=== PATIENT | female | born 1950 | race Caucasian/White ===

== ENCOUNTER 2023-03-22 10:34 | Emergency (ER) | payer OTHER ==
[~2023-03-22] VITALS: Ht 154.9 cm; Wt 72.6 kg
[2023-03-22] MEDS ORDERED: ATORVASTATIN CA40 MG PO (10:51)
[2023-03-22] MEDS ORDERED: AVAPRO150 MG PO (10:51)
[2023-03-22] MEDS ORDERED: HYDROCHLOROTH12.5 MG PO (10:52)
[2023-03-22] MEDS ORDERED: BACTRIM 400-801 EACH PO (10:52)
[2023-03-22] MEDS ORDERED: OZEMPIC1 MG/0.71 SQ (10:53)
[2023-03-22 12:12] LABS: PH,URINE 7.5 (5.0-8.0); URINE APPEARANCE Cloudy; URINE BILIRRUBIN Negative (NEGATIVE); URINE BLOOD Moderate; URINE COLOR Yellow; URINE GLUCOSE Negative (NEGATIVE); URINE LEUKOCYTE Large; URINE NITRATE Negative; URINE PROTEIN Negative (NEGATIVE); URINE UROBILINOGEN 0.2 E.U./dl
[2023-03-22 12:14] LABS: URINE RBC 85.7 uL (0.0-20.8); URINE WBC 1885.4 uL (0.0-23.2)
[2023-03-22] MEDS ORDERED: CEPHALEXIN500 MG PO (13:10)
== END 2023-03-22 13:32 | disposition home or self-care (01) ==
LOC: ER 10:34
PROVIDERS: Emergency Medicine
DX: N39.0 Urinary tract infection, site not specified (principal)